=== PATIENT | female | born 1975 | race Caucasian/White ===

== ENCOUNTER 2022-07-24 19:42 | Emergency (ER) | payer SELFPAY ==
[~2022-07-24] VITALS: Ht 160 cm; Wt 110.0 kg
[~2022-07-24 19:42] MED LIST: AZIT-21 PO; PRCD5U PO
--- NOTE | 2022-07-24 20:06 | ED EENT ---
History of Present Illness General Chief Complaint: Ear Problems Stated Complaint: RIGHT EAR/JAW PAIN Nursing Triage Note: PT AMBULATES TO ROOM WITHOUT ASSISTANCE OF ER STAFF; PT REPORTS APPROX 1 YEAR AGO THAT SHE WAS DIAGNOSED WITH CELLULITIS ON R EARLOBE; PT ADVISES THAT STARTING MONDAY SHE BEGAN TO C/O SOME PAIN AND ITCHING IN R EAR; PT HAS NOT SEEN PCP OR URGENT CARE FOR COMPLAINT Source: patient Exam Limitations: no limitations (MADHU MXA APRN) History of Present Illness Date Seen by Provider: Jul 24, 2022 Time Seen by Provider: 20:06 Initial Comments 46 y/o female presents tonight with c/o right ear pain, itching, drainage that started this morning and has gradually worsened throughout today. Denies hearing loss. Pt has taken OTC tylenol with no relief. She reports h/o ce llulitis of ear lobe approximately one year ago. Denies fever, chills, headache, body aches. Timing/Duration: this morning Severity: mild Location: ear (R) Prearrival Treatment: over the counter meds Associated Symptoms: No change in hearing; ear drainage; No facial pain/s welling, No fever, No malaise, No nasal congestion/drainage, No sinus infection, No sore throat, No tooth pain (MADHU MAX APRN) Allergies and Home Medications Allergies Coded Allergies: No Known Drug Allergies (Unverified Allergy, Mild, 01/16/09) Penicillins (Verified Allergy, Unknown, 05/08/07) Patient Home Medication List Home Medication List Reviewed: Yes (MADHU MAX APRN) Azithromycin (Zithromax Tab) 250 Mg Tab, 2 TAB PO TODAY Prescribed by: JASMIN AVILES on 01/16/091549 Ciprofloxacin HCl/Dexameth (Ciproflox-Dexameth Otic Susp) 0.3 %-0.1 % Drops.susp, 7.5 ML OT BID Prescribed by: Madhu Max on 07/24/222032 Last Action: New Order Promethazine/Codeine (Phenergan W/Codeine Syrup) 5 Ml Syrp, 0 PO Q4H Prescribed by: JASMIN AVILES on 01/16/091549 Review of Systems Review of Systems Constitutional: No chills, No fever, No malaise, No weakness Eyes: No Symptoms Reported Ears: Pain, Purulent Discharge Nose: no symptoms reported Mouth: no symptoms reported Throat: no symptoms reported Respiratory: no symptoms reported Cardiovascular: no symptoms reported Musculoskeletal: no symptoms reported Skin: no symptoms reported Neurological: No Symptoms Reported Hematologic/Lymphatic: No Symptoms Reported Immunological/Allergic: no symptoms reported (MADHU MAX APRN) Past Ytravuh-Ycwxio-Snkbgr Hx Patient Social History Tobacco Use?: No Substance use?: No Alcohol Use?: No Pt feels they are or have been: Yes (MADHU MAX APRN) Immunizations Up To Date Influenza Vaccine Up-to-Date: No; Not Current First/Initial COVID19 Vaccinat: 2020 Second COVID19 Vaccination Christofer: 2020 COVID19 Vaccine Metal Bumper: RUTH (MADHU MAX APRN) Seasonal Allergies Seasonal Allergies: No (MADHU MAX APRN) Past Medical History Surgeries: No Reproductive Disorders: No (MADHU MAX APRN) Physical Exam Vital Signs Vital Signs - First Documented 07/24/22 19:56 Temp 36.9 Pulse 90 Resp 14 B/P (MAP) 174/99 (124) Pulse Ox 97 O2 Delivery Room Air (RAÚL FARFAN MD) Height, Weight, BMI Height: '" Weight: lbs. oz. kg; 42.00 BMI Method: General Appearance: WD/WN, no apparent distress Ears: left ear discharge, left ear erythema, left ear tenderness Nose: normal inspection Mouth/Throat: normal mouth inspection Neck: non-tender, full range of motion, supple, normal inspection; No lymphad enopathy (R), No lymphadenopathy (L) Cardiovascular: normal peripheral pulses, regular rate, rhythm Respiratory: chest non-tender, lungs clear Neurologic/Psychiatric: hand sander II-XII nml as tested, no motor/sensory deficits Skin: normal color, warm/dry (MADHU MAX APRN) Progress/Results/Core Measures Results/Orders Medications Given in ED Current Medications Medications Dose Ordered Sig/Miles Route Start Time Stop Time Status Last Admin Dose Admin Ceftriaxone Sodium 1,000 mg ONCE ONCE IM 07/24/22 20:15 07/24/22 20:18 DC 07/24/22 20:36 1,000 MG Ketorolac Tromethamine 60 mg ONCE ONCE IM 07/24/22 20:30 07/24/22 20:42 DC 07/24/22 20:36 60 MG Lidocaine HCl 2.1 ml ONCE ONCE INJ 07/24/22 20:15 07/24/22 20:18 DC 07/24/22 20:35 2.1 ML (RAÚL FARFAN MD) Vital Signs/I&O 07/24/22 07/24/22 19:56 20:40 Temp 36.9 36.9 Pulse 90 90 Resp 14 14 B/P (MAP) 174/99 (124) 174/99 Pulse Ox 97 97 O2 Delivery Room Air Room Air (RAÚL FARFAN MD) Blood Pressure Mean: 124 Departure Impression Primary Impression: Otitis externa Disposition: HOME, SELF-CARE Condition: Stable Departure-Patient Inst. Decision time for Depature: 20:20 (MADHU MAX APRN) Referrals: [facility] (PCP/Family) Primary Care Physician Patient Instructions: Outer Ear Infection (DC) Add. Discharge Instructions: Tylenol 500mg every 4 hours as needed. Ibuprofen 600mg every 6 hours as needed. Put 4 drops in right ear every 6 hours for 7 days. Follow up with new/worsening concerns All discharge instructions reviewed with patient and/or family. Voiced understanding. Scripts Ciprofloxacin HCl/Dexameth (Ciproflox-Dexameth Otic Susp) 0.3 %-0.1 % Drops.susp 7.5 ML OT BID for 7 Days, #4 DROPS Prov: MADHU MAX APRN 07/24/22 ATTENDING PHYSICIAN NOTE: I was physically present as attending physician in the emergency department during the care of this patient, but I was not directly involved in the decision making or delivery of care for this patient. (RAÚL FARFAN MD) MADHU MAX APRN Jul 24, 2022 20:06 RAÚL FARFAN MD Jul 25, 2022 07:10
[2022-07-24] MEDS ORDERED: NEOMY/POLYM/HC (CORTISPORIN) 10 ML BTL OT STA (20:13)
[2022-07-24] MEDS ORDERED: LIDOCAINE 1% INJ 20 ML VIAL INJ ONE (20:15)
[2022-07-24] MEDS ORDERED: cefTRIAXone 1,000 MG VIAL IM ONE (20:15)
[2022-07-24] MEDS ORDERED: KETOROLAC 60 MG/2 ML VIAL IM ONE (20:30)
[2022-07-24] MEDS ORDERED: CIPR7.5D6 OT (20:33)
[2022-07-24] MEDS ORDERED: KETOROLAC 60 MG/2 ML VIAL ONE (20:33)
[2022-07-24 20:40] VITALS: BP 174/99
== END 2022-07-24 20:41 | disposition home or self-care (01) ==
LOC: EDUNIT# 19:42 → ER 19:46
DX: H60.92 Unspecified otitis externa, left ear (principal); Z86.69 Personal history of other diseases of the nervous system and sense organs; Z88.0 Allergy status to penicillin; Z28.310 Unvaccinated for COVID-19

== ENCOUNTER 2022-09-21 07:39 | Emergency (ER) | payer SELFPAY ==
[~2022-09-21] VITALS: Ht 160 cm; Wt 113.0 kg
[~2022-09-21 07:39] MED LIST changes: +CIPR7.5D6 OT
--- NOTE | 2022-09-21 08:09 | ED GI ---
General Chief Complaint: Abdominal/GI Problems Stated Complaint: KIDNEY STONE Nursing Triage Note: pt ambulates to room 07 w c/o "stabbing" right lower back pain and abdominal pain. Patient states the pain started Monday ([id number]). Source of Information: Patient Exam Limitations: No Limitations History of Present Illness Date Seen by Provider: Sep 21, 2022 Time Seen by Provider: 07:55 Initial Comments 46-year-old female presents the emergency department for stabbing pain in her right flank region with radiation around her right anterior abdomen. Symptoms started on Monday and have been constant, progressive since that time. She gets slight relief after urination but continues to have pain. No hematuria or dysuria. No vaginal symptoms. She does not have menstrual cycles, had a hysterectomy at age 31. Denies any other intra-abdominal surgeries. She denies any fevers or chills. No changes in bowels or urination. She has never had s imilar pains in the past. No known trauma. Allergies and Home Medications Allergies Coded Allergies: Penicillins (Verified Allergy, Unknown, 05/08/07) No Known Drug Allergies (Unverified , 01/16/09) Patient Home Medication List Home Medication List Reviewed: Yes Azithromycin (Zithromax Tab) 250 Mg Tab, 2 TAB PO TODAY Prescribed by: JASMIN AVILES on 01/16/091549 Ciprofloxacin HCl/Dexameth (Ciproflox-Dexameth Otic Susp) 0.3 %-0.1 % Drops.susp, 7.5 ML OT BID Prescribed by: Brii Cornejo on 07/24/222032 Promethazine/Codeine (Phenergan W/Codeine Syrup) 5 Ml Syrp, 0 PO Q4H Prescribed by: JASMIN AVILES on 01/16/091549 Review of Systems Review of Systems Constitutional: no symptoms reported EENTM: No Symptoms Reported Respiratory: No Symptoms Reported Cardiovascular: No Symptoms Reported Gastrointestinal: Nausea, Other (Right flank, right abdomen pain) Genitourinary: No Symptoms Reported Musculoskeletal: no symptoms reported Skin: no symptoms reported Psychiatric/Neurological: No Symptoms Reported Endocrine: No Symptoms Reported Hematologic/Lymphatic: No Symptoms Reported Past Frclozn-Cmykzn-Mxezrc Hx Patient Social History Tobacco Use?: No Substance use?: No Alcohol Use?: No Immunizations Up To Date First/Initial COVID19 Vaccinat: 2020 Second COVID19 Vaccination Christofer: 2020 Seasonal Allergies Seasonal Allergies: No Past Medical History Surgeries: No Reproductive Disorders: No Family Medical History Reviewed Nursing Family Hx No Pertinent Family Hx Physical Exam Vital Signs Vital Signs - First Documented 09/21/22 07:53 Temp 36.1 Pulse 85 Resp 20 B/P (MAP) 172/116 (134) Pulse Ox 96 O2 Delivery Room Air Capillary Refill : Less Than 3 Seconds Height/Weight/BMI Height: '" Weight: lbs. oz. kg; 44.00 BMI Method: General Appearance: WD/WN, no apparent distress HEENT: normal ENT inspection, pharynx normal Neck: non-tender, full range of motion, supple, normal inspection Respiratory: chest non-tender, lungs clear, normal breath sounds, no respiratory distress, no accessory muscle use Cardiovascular: regular rate, rhythm, no edema, no gallop, no JVD, no murmur Gastrointestinal: normal bowel sounds, non tender, soft, no organomegaly Extremities: normal range of motion, non-tender, normal inspection, no pedal edema, no calf tenderness, normal capillary refill Back: normal inspection, no vertebral tenderness, CVA tenderness (R) Skin: normal color, warm/dry Lymphatic: no adenopathy Progress/Results/Core Measures Results/Orders Lab Results Laboratory Tests Test 09/21/22 08:17 09/21/22 09:27 Range/Units White Blood Count 7.0 4.3-11.0 10^3/uL Red Blood Count 5.20 H 3.80-5.11 10^6/uL Hemoglobin 14.3 11.5-16.0 g/dL Hematocrit 44 35-52 % Mean Corpuscular Volume 84 80-99 fL Mean Corpuscular Hemoglobin 28 25-34 pg Mean Corpuscular Hemoglobin Concent 33 32-36 g/dL Red Cell Distribution Width 14.3 10.0-14.5 % Platelet Count 347 130-400 10^3/uL Mean Platelet Volume 9.7 9.0-12.2 fL Immature Granulocyte % (Auto) 0 % Neutrophils (%) (Auto) 59 42-75 % Lymphocytes (%) (Auto) 31 12-44 % Monocytes (%) (Auto) 6 0-12 % Eosinophils (%) (Auto) 3 0-10 % Basophils (%) (Auto) 1 0-10 % Neutrophils # (Auto) 4.2 1.8-7.8 10^3/uL Lymphocytes # (Auto) 2.2 1.0-4.0 10^3/uL Monocytes # (Auto) 0.4 0.0-1.0 10^3/uL Eosinophils # (Auto) 0.2 0.0-0.3 10^3/uL Basophils # (Auto) 0.0 0.0-0.1 10^3/uL Immature Granulocyte # (Auto) 0.0 0.0-0.1 10^3/uL Sodium Level 137 135-145 MMOL/L Potassium Level 4.0 3.6-5.0 MMOL/L Chloride Level 104 98-107 MMOL/L Carbon Dioxide Level 25 21-32 MMOL/L Anion Gap 8 5-14 MMOL/L Blood Urea Nitrogen 8 7-18 MG/DL Creatinine 0.73 0.60-1.30 MG/DL Estimat Glomerular Filtration Rate 104 BUN/Creatinine Ratio 11 Glucose Level 105 70-105 MG/DL Calcium Level 9.5 8.5-10.1 MG/DL Corrected Calcium 9.2 8.5-10.1 MG/DL Total Bilirubin 0.4 0.1-1.0 MG/DL Aspartate Amino Transf (AST/SGOT) 16 5-34 U/L Alanine Aminotransferase (ALT/SGPT) 21 0-55 U/L Alkaline Phosphatase 71 40-136 U/L Total Protein 7.9 6.4-8.2 GM/DL Albumin 4.4 3.2-4.5 GM/DL Urine Color YELLOW Urine Clarity CLEAR Urine pH 6.0 5-9 Urine Specific Shubert 1.025 H 1.016-1.022 Urine Protein NEGATIVE NEGATIVE Urine Glucose (UA) NEGATIVE NEGATIVE Urine Ketones NEGATIVE NEGATIVE Urine Nitrite NEGATIVE NEGATIVE Urine Bilirubin NEGATIVE NEGATIVE Urine Urobilinogen 0.2 < = 1.0 MG/DL Urine Leukocyte Esterase NEGATIVE NEGATIVE Urine RBC (Auto) NEGATIVE NEGATIVE Urine RBC NONE /HPF Urine WBC NONE /HPF Urine Squamous Epithelial Cells 0-2 /HPF Urine Crystals NONE /LPF Urine Bacteria NEGATIVE /HPF Urine Casts NONE /LPF Urine Mucus NEGATIVE /LPF Urine Culture Indicated NO My Orders Orders - SRIRAM WEIR DO Ct Abd/Pelvis Wo(Kidney Stone) (09/21/22 08:04) Cbc With Automated Diff (09/21/22 08:04) Comprehensive Metabolic Panel (09/21/22 08:04) Ua Culture If Indicated (09/21/22 08:04) Ns Iv 1000 Ml (Sodium Chloride 0.9%) (09/21/22 08:15) Fentanyl Inj (Sublimaze Injection) (09/21/22 08:15) Ondansetron Injection (Zofran Injectio (09/21/22 08:15) Diphenhydramine Injection (Benadryl Inje (09/21/22 09:45) Ketorolac Injection (Toradol Injection) (09/21/22 09:45) Medications Given in ED Current Medications Medications Dose Ordered Sig/Miles Route Start Time Stop Time Status Last Admin Dose Admin Diphenhydramine HCl 50 mg ONCE ONCE IM 09/21/22 09:45 09/21/22 09:46 DC 09/21/22 09:42 50 MG Fentanyl Citrate 50 mcg ONCE ONCE IVP 09/21/22 08:15 09/21/22 08:16 DC 09/21/22 08:20 50 MCG Ketorolac Tromethamine 15 mg ONCE ONCE IVP 09/21/22 09:45 09/21/22 09:46 DC 09/21/22 09:40 15 MG Ondansetron HCl 8 mg ONCE ONCE IVP 09/21/22 08:15 09/21/22 08:16 DC 09/21/22 08:19 8 MG Vital Signs/I&O 09/21/22 07:53 Temp 36.1 Pulse 85 Resp 20 B/P (MAP) 172/116 (134) Pulse Ox 96 O2 Delivery Room Air Blood Pressure Mean: 134 Departure Communication (Admissions) CMP to check electrolytes, liver function, possibility of possible gallbladder pathology. Lipase to rule out pancreatitis. UA to check for hematuria, i nfection given chance of kidney stone or pyelonephritis. CT abdomen without contrast to evaluate for ureterolithiasis and screen for other acute pathology. No test ordered because the patient has had a hysterectomy. She denies any vaginal symptoms so we will forego pelvic exam at this time. Patient's. After provided medications. Benadryl seemed helpful for her nausea and then did go.. She is also received fentanyl IV which helped some and Toradol which helped even more. Her CT scan shows no evidence for ureteral stone she does have a stone retained in her kidney. This does not appear to be obstructive at this time. She has some trace blood in her urine but no urinary tract infection no evidence for pyelonephritis. This may be a recently passed stone versus musculoskeletal type pain. There is no other intra-abdominal, pelvic pathology seen on her CT scan. Her vital signs are stable and her exam is reassuring. She is discharged home with supportive care, pain medication and nausea medicine and close follow-up. She states understanding she is comfortable and agreeable with current plan of care. Impression Primary Impression: Right flank pain Disposition: 01 HOME, SELF-CARE Condition: Stable Departure-Patient Inst. Referrals: [facility] (PCP/Family) Primary Care Physician Patient Instructions: Flank Pain Add. Discharge Instructions: Take Toradol as needed for pain. Use the Zofran by dissolving it under your tongue as needed for nausea. You may use Benadryl orally for this as well. Increase your fluids and rest as needed. Return to the emergency department for any severe concerns. Follow-up with your primary doctor for any nonemergent needs All discharge instructions reviewed with patient and/or family. Voiced understanding. Scripts Ondansetron (Ondansetron Odt) 8 Mg Tab.rapdis 8 MG SL Q6H PRN for NAUSEA/VOMITING for 3 Days, #12 TAB Prov: SRIRAM WEIR DO 09/21/22 Ketorolac Tromethamine (Ketorolac Tromethamine) 10 Mg Tablet 10 MG PO TID for Pain for 3 Days, #9 TAB Prov: SRIRAM WEIR DO 09/21/22 SRIRAM WEIR DO Sep 21, 2022 08:09
[2022-09-21] MEDS ORDERED: ONDANSETRON 4 MG/2 ML (SDV) Z0FRAN IVP ONE (08:15)
[2022-09-21] MEDS ORDERED: NS IV 1000 ML 1,000 ML IV SCH (08:15)
[2022-09-21] MEDS ORDERED: fentaNYL INJ 100 MCG/2 ML AMP IVP ONE (08:15)
[2022-09-21 08:23] LABS: BASOPHILS % (AUTO) 1 % (0-10); EOSINOPHILS # (AUTO) 0.2 10^3/uL (0.0-0.3); EOSINOPHILS % (AUTO) 3 % (0-10); HEMATOCRIT 44 % (35-52); HEMOGLOBIN 14.3 g/dL (11.5-16.0); LYMPHOCYTES # (AUTO) 2.2 10^3/uL (1.0-4.0); LYMPHOCYTES % (AUTO) 31 % (12-44); MEAN CORPUSCULAR HEMOGLOBIN 28 pg (25-34); MEAN CORPUSCULAR HGB CONC 33 g/dL (32-36); MEAN CORPUSCULAR VOLUME 84 fL (80-99); MEAN PLATELET VOLUME 9.7 fL (9.0-12.2); MONOCYTES # (AUTO) 0.4 10^3/uL (0.0-1.0); MONOCYTES % (AUTO) 6 % (0-12); NEUTROPHILS # (AUTO) 4.2 10^3/uL (1.8-7.8); NEUTROPHILS % (AUTO) 59 % (42-75); PLATELET COUNT 347 10^3/uL (130-400)
[2022-09-21 08:45] LABS: ALBUMIN 4.4 GM/DL (3.2-4.5)
[2022-09-21 08:46] LABS: CALCIUM 9.5 MG/DL (8.5-10.1)
[2022-09-21 08:47] LABS: TOTAL PROTEIN 7.9 GM/DL (6.4-8.2)
[2022-09-21 08:49] LABS: BILIRUBIN,TOTAL 0.4 MG/DL (0.1-1.0)
[2022-09-21 08:51] LABS: CREATININE SERUM 0.73 MG/DL (0.60-1.30)
--- NOTE | 2022-09-21 09:14 | Diagnostic Imaging Report ---
PROCEDURE: CT urinary tract, rule out kidney stone. TECHNIQUE: Multiple contiguous axial images were obtained through the abdomen and pelvis without the use of intravenous contrast. Auto Exposure Controls were utilized during the CT exam to meet ALARA standards for radiation dose reduction. INDICATION: Right-sided flank pain. COMPARISON: None. FINDINGS: The heart is unremarkable. Tiny nodules are seen in the lung bases measuring up to 0.4 cm. There is hepatic steatosis with focal fatty sparing along the gallbladder fossa. The gallbladder is unremarkable. A nonobstructing calculus is seen in the inferior pole of the left kidney measuring 0.3 cm. No obstructing calculi or hydronephrosis. The urinary bladder is nondistended. No bladder calculi are seen. The spleen, pancreas, and adrenal glands have a normal appearance. There is no pathologically enlarged mesenteric or retroperitoneal adenopathy. The bowel loops are nondilated. The appendix is visualized in the right lower quadrant and has a normal appearance. There is no free fluid or free air. No acute osseous abnormalities. There is no free air, loculated collection, or adenopathy in the pelvis. IMPRESSION: 1. Nonobstructing calculus in the inferior pole of the left kidney measuring 0.3 cm. No obstructing calculi or hydronephrosis. 2. Hepatic steatosis. 3. Scattered subcentimeter nodules in the lung bases measuring up to 0.4 cm. Findings likely represent inflammatory/infectious process. However, if the patient is high risk for developing lung malignancy consider followup in one month with chest CT. Dictated by: Dictated on workstation # [id number]
[2022-09-21 09:41] LABS: BILIRUBIN,URINE NEGATIVE (NEGATIVE); CLARITY,URINE CLEAR; COLOR,URINE YELLOW; GLUCOSE, URINE (UA) NEGATIVE (NEGATIVE); KETONES,URINE NEGATIVE (NEGATIVE); LEUKOCYTE ESTERASE ,URINE NEGATIVE (NEGATIVE); NITRITE,URINE NEGATIVE (NEGATIVE); PROTEIN,URINE NEGATIVE (NEGATIVE)
[2022-09-21] MEDS ORDERED: KETOROLAC 30 MG/ML VIAL IVP ONE (09:45)
[2022-09-21] MEDS ORDERED: diphenhydrAMINE 50 MG/ML INJ (BENADRYL) IM ONE (09:45)
[2022-09-21 09:56] LABS: BACTERIA,URINE NEGATIVE /HPF; SQUAMOUS EPITHELIAL CELL,UR 0-2 /HPF
[2022-09-21] MEDS ORDERED: ONDA8TAB13 SL (10:26)
[2022-09-21] MEDS ORDERED: KETO10TA PO (10:26)
[2022-09-21 10:39] VITALS: BP 144/93
== END 2022-09-21 10:39 | disposition home or self-care (01) ==
LOC: EDUNIT# 07:39 → ER 07:41
DX: R10.9 Unspecified abdominal pain (principal); Z28.310 Unvaccinated for COVID-19
CPT/HCPCS: 36415; 74176; 80053; 81000; 85025

== ENCOUNTER 2023-05-09 00:58 | Emergency (ER) | payer SELFPAY ==
[~2023-05-09] VITALS: Ht 160 cm; Wt 113.0 kg
[~2023-05-09 00:58] MED LIST changes: +KETO10TA PO; +ONDA8TAB13 SL
[2023-05-09] MEDS ORDERED: KETOROLAC INJ 30 MG/ML VIAL IVP STA (01:28)
[2023-05-09] MEDS ORDERED: LACTATED RINGERS 1,000 ML 1,000 ML IV ONE (01:30)
[2023-05-09] MEDS ORDERED: ONDANSETRON INJECTION 4 MG/2 ML (SDV) IVP ONE (01:30)
[2023-05-09 01:40] LABS: BASOPHILS # (AUTO) 0.1 10^3/uL (0.0-0.1); BASOPHILS % (AUTO) 1 % (0-10); EOSINOPHILS # (AUTO) 0.3 10^3/uL (0.0-0.3); EOSINOPHILS % (AUTO) 3 % (0-10); HEMATOCRIT 41 % (35-52); LYMPHOCYTES # (AUTO) 4.1 10^3/uL (1.0-4.0); LYMPHOCYTES % (AUTO) 44 % (12-44); MEAN CORPUSCULAR HEMOGLOBIN 28 pg (25-34); MEAN CORPUSCULAR HGB CONC 32 g/dL (32-36); MEAN CORPUSCULAR VOLUME 88 fL (80-99); MEAN PLATELET VOLUME 10.1 fL (9.0-12.2); MONOCYTES # (AUTO) 0.5 10^3/uL (0.0-1.0); MONOCYTES % (AUTO) 6 % (0-12); NEUTROPHILS # (AUTO) 4.4 10^3/uL (1.8-7.8); NEUTROPHILS % (AUTO) 47 % (42-75); PLATELET COUNT 332 10^3/uL (130-400); WHITE BLOOD COUNT 9.5 10^3/uL (4.3-11.0)
[2023-05-09 01:42] LABS: BILIRUBIN,URINE NEGATIVE (NEGATIVE); CLARITY,URINE CLEAR; COLOR,URINE YELLOW; GLUCOSE, URINE (UA) NEGATIVE (NEGATIVE); KETONES,URINE NEGATIVE (NEGATIVE); LEUKOCYTE ESTERASE ,URINE NEGATIVE (NEGATIVE); NITRITE,URINE NEGATIVE (NEGATIVE); PH,URINE 5.5 (5-9); PROTEIN,URINE NEGATIVE (NEGATIVE); RBC,URINE 0-2 /HPF; SQUAMOUS EPITHELIAL CELL,UR 0-2 /HPF
[2023-05-09 01:43] LABS: AMORPHOUS SEDIMENT,UR MOD AMOR URATES /LPF
--- NOTE | 2023-05-09 01:45 | ED General ---
General Stated Complaint: COVID+,LEFT SIDE PX Source of Information: Patient History of Present Illness Date Seen by Provider: May 09, 2023 Time Seen by Provider: 01:08 Initial Comments PT ARRIVES VIA POV FROM HOME PT BEGAN GETTING SICK LAST Monday05/03/23 WITH COUGH, CONGESTION, FEVER SHE TESTED POSITIVE FOR COVID YESTERDAY AT A CLINIC NO CHEST PAIN OR SHORTNESS OF BREATH OR PAIN WITH BREATHING. NO FEVER TODAY SHE BEGAN HAVING SUDDEN ONSET OF LEFT FLANK PAIN 30 MINUTES PRIOR TO ARRIVAL + NAUSEA, NO VOMITING WITH THE PAIN NO URINARY SYMPTOMS SHE HAS NOT TAKEN ANYTHING FOR PAIN SHE DOES HAVE A HISTORY OF A KIDNEY STONE IN THE PAST. PASSED IT ON HER OWN. DOES NOT SEE A UROLOGIST LMP--HYSTERECTOMY AT AGE 31 [facility] Allergies and Home Medications Allergies Coded Allergies: Penicillins (Verified Allergy, Unknown, 05/08/07) No Known Drug Allergies (Unverified , 01/16/09) Patient Home Medication List Azithromycin (Zithromax Tab) 250 Mg Tab, 2 TAB PO TODAY Prescribed by: JASMIN AVILES on 01/16/09 1550 Ciprofloxacin HCl/Dexameth (Ciproflox-Dexameth Otic Susp) 0.3 %-0.1 % Drops.susp, 7.5 ML OT BID Prescribed by: Brii Cornejo on 07/24/222032 Ketorolac Tromethamine (Ketorolac Tromethamine) 10 Mg Tablet, 10 MG PO TID Prescribed by: SRIRAM WEIR MD on 09/21/22 1026 Ondansetron (Ondansetron Odt) 8 Mg Tab.rapdis, 8 MG SL Q6H PRN for NAUSEA/VOMITING Prescribed by: SRIRAM WEIR MD on 09/21/22 1026 Promethazine/Codeine (Phenergan W/Codeine Syrup) 5 Ml Syrp, 0 PO Q4H Prescribed by: JASMIN AVILES on 01/16/09 1550 Review of Systems Review of Systems Constitutional: see HPI EENTM: see HPI Respiratory: see HPI Cardiovascular: no symptoms reported Gastrointestinal: see HPI Genitourinary: see HPI : No Musculoskeletal: see HPI Skin: no symptoms reported Psychiatric/Neurological: No Symptoms Reported Hematologic/Lymphatic: No Symptoms Reported Immunological/Allergic: no symptoms reported Past Oufgrwg-Uulvjm-Ihdcbo Hx Immunizations Up To Date First/Initial COVID19 Vaccinat: 2020 Second COVID19 Vaccination Christofer: 2020 Seasonal Allergies Seasonal Allergies: No Past Medical History Surgeries: Yes Hysterectomy, Oophorectomy Respiratory: No Cardiac: Yes Hypertension Neurological: No 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 oz. 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 Norm as Tested Skin: Normal Color, Warm/Dry; No Rash Progress/Results/Core Measures Suspected Sepsis SIRS Temperature: Pulse: Respiratory Rate: Laboratory Tests 05/09/23 01:29: White Blood Count 9.5 Blood Pressure / Mean: Laboratory Tests 05/09/23 01:29: Creatinine 0.84, Platelet Count 332, Total Bilirubin 0.2 Results/Orders Lab Results Laboratory Tests Test 05/09/23 01:28 05/09/23 01:29 Range/Units Urine Color YELLOW Urine Clarity CLEAR Urine pH 5.5 5-9 Urine Specific [place] 1.025 H 1.016-1.022 Urine Protein NEGATIVE NEGATIVE Urine Glucose (UA) NEGATIVE NEGATIVE Urine Ketones NEGATIVE NEGATIVE Urine Nitrite NEGATIVE NEGATIVE Urine Bilirubin NEGATIVE NEGATIVE Urine Urobilinogen 0.2 < = 1.0 MG/DL Urine Leukocyte Esterase NEGATIVE NEGATIVE Urine RBC (Auto) 3+ H NEGATIVE Urine RBC 0-2 /HPF Urine WBC NONE /HPF Urine Squamous Epithelial Cells 0-2 /HPF Urine Crystals PRESENT H /LPF Urine Amorphous Sediment MOD IRAM URATES H /LPF Urine Bacteria NEGATIVE /HPF Urine Casts NONE /LPF Urine Mucus SMALL H /LPF Urine Culture Indicated NO White Blood Count 9.5 4.3-11.0 10^3/uL Red Blood Count 4.62 3.80-5.11 10^6/uL Hemoglobin 13.0 11.5-16.0 g/dL Hematocrit 41 35-52 % Mean Corpuscular Volume 88 80-99 fL Mean Corpuscular Hemoglobin 28 25-34 pg Mean Corpuscular Hemoglobin Concent 32 32-36 g/dL Red Cell Distribution Width 14.3 10.0-14.5 % Platelet Count 332 130-400 10^3/uL Mean Platelet Volume 10.1 9.0-12.2 fL Immature Granulocyte % (Auto) 0 % Neutrophils (%) (Auto) 47 42-75 % Lymphocytes (%) (Auto) 44 12-44 % Monocytes (%) (Auto) 6 0-12 % Eosinophils (%) (Auto) 3 0-10 % Basophils (%) (Auto) 1 0-10 % Neutrophils # (Auto) 4.4 1.8-7.8 10^3/uL Lymphocytes # (Auto) 4.1 H 1.0-4.0 10^3/uL Monocytes # (Auto) 0.5 0.0-1.0 10^3/uL Eosinophils # (Auto) 0.3 0.0-0.3 10^3/uL Basophils # (Auto) 0.1 0.0-0.1 10^3/uL Immature Granulocyte # (Auto) 0.0 0.0-0.1 10^3/uL Sodium Level 142 135-145 MMOL/L Potassium Level 3.6 3.6-5.0 MMOL/L Chloride Level 106 98-107 MMOL/L Carbon Dioxide Level 26 21-32 MMOL/L Anion Gap 10 5-14 MMOL/L Blood Urea Nitrogen 13 7-18 MG/DL Creatinine 0.84 0.60-1.30 MG/DL Estimat Glomerular Filtration Rate 87 BUN/Creatinine Ratio 15 Glucose Level 126 H 70-105 MG/DL Calcium Level 9.2 8.5-10.1 MG/DL Corrected Calcium 9.1 8.5-10.1 MG/DL Magnesium Level 2.0 1.6-2.4 MG/DL Total Bilirubin 0.2 0.1-1.0 MG/DL Aspartate Amino Transf (AST/SGOT) 17 5-34 U/L Alanine Aminotransferase (ALT/SGPT) 23 0-55 U/L Alkaline Phosphatase 61 40-136 U/L Total Protein 7.0 6.4-8.2 GM/DL Albumin 4.1 3.2-4.5 GM/DL Amylase Level 50 25-125 U/L Lipase 16 8-78 U/L My Orders Orders - MARC BOO DO Chest 1 View, Ap/Pa Only (05/09/23 01:07) Ed Iv/Invasive Line Start (05/09/23 01:21) Monitor-Rhythm Ecg Trace Only (05/09/23 01:21) Ct Abd/Pelvis Wo(Kidney Stone) (05/09/23 01:21) Amylase (05/09/23 01:21) Cbc With Automated Diff (05/09/23 01:21) Comprehensive Metabolic Panel (05/09/23 01:21) Lipase (05/09/23 01:21) Magnesium (05/09/23 01:21) Ua Culture If Indicated (05/09/23 01:21) Ed Iv/Invasive Line Start (05/09/23 01:21) Lactated Ringers 1,000 Ml (Lactated Ring (05/09/23 01:30) Ondansetron Injection (Ondansetron Inj (05/09/23 01:30) Ketorolac Injection (Ketorolac Injection (05/09/23 01:28) Medications Given in ED Current Medications Medications Dose Ordered Sig/Miles Route Start Time Stop Time Status Last Admin Dose Admin Lactated Ringer's 1,000 ml @ 0 mls/hr Q0M ONCE IV 05/09/23 01:30 05/09/23 01:31 DC 05/09/23 01:35 0 MLS/HR Ondansetron HCl 4 mg ONCE ONCE IVP 05/09/23 01:30 05/09/23 01:31 DC 05/09/23 01:34 4 MG Vital Signs/I&O 05/09/23 01:16 Temp 36.5 Pulse 83 Resp 20 B/P (MAP) 123/101 (108) Pulse Ox 95 O2 Delivery Room Air Capillary Refill : Progress Note : Progress Note PLACED IN ISOLATION ROOM FULL PPE WORN VITALS ON ARRIVAL: TEMP , HR 83, RR 20, BP 123/101, O2 SAT 95% ON ROOM AIR GIVEN: -IV FLUIDS -TORADOL -ZOFRAN LABS: -CBC NORMAL -CMP NORMAL -AMYLASE/LIPASE NORMAL -UA WITH 3+ BLOOD CXR--UNREMARKABLE, POOR INSPIRATION--PENDING RADIOLOGIST REVIEW CT ABDOMEN/PELVIS NO COUGH NO DYSPNEA NO HYPOXIA NO FEVER PAIN AND NAUSEA IMPROVED WITH MEDICATIONS DISCUSSED TEST RESULTS, ANTICIPATED COURSE, SYMPTOMATIC TREATMENT, NEED FOR FOLLOW UP AND RETURN PRECAUTIONS. Departure Impression Primary Impression: Calculus of distal left ureter Additional Impression: COVID-19 virus infection Disposition: HOME, SELF-CARE Condition: Improved Departure-Patient Inst. Decision time for Depature: 03:40 Referrals: [facility]/ (PCP/Family) Primary Care Physician Patient Instructions: Kidney Stones (DC), How to Strain Your Urine, COVID-19 (DC), Kidney Stone Diet Add. Discharge Instructions: HOME, REST LOTS OF CLEAR LIQUIDS FOLLOW UP WITH UROLOGIST OF CHOICE THIS WEEK FOR FURTHER CARE--THERE ARE UROLOGY SERVICES IN [place] AND AT [facility] IN [place]--CALL IN THE MORNING TO SCHEDULE AN APPOINTMENT RETURN TO ER IF SYMPTOMS WORSEN Scripts Hydrocodone Bit/Acetaminophen (HYDROcodone/APAP 7.5/325 TAB) 1 Ea Tablet 1 EA PO Q4-6 PRN for PAIN, #20 TAB Prov: MARC BOO DO 05/09/23 Ketorolac Tromethamine (Ketorolac Tromethamine) 10 Mg Tablet 10 MG PO Q6H for Pain, #15 TAB Prov: MARC BOO DO 05/09/23 Ondansetron (Ondansetron Odt) 8 Mg Tab.rapdis 8 MG PO Q6H, #12 TAB Prov: MARC BOO DO 05/09/23 Tamsulosin HCl (Flomax) 0.4 Mg Cap 0.4 MG PO DAILY, #10 CAP Prov: MARC BOO DO 05/09/23 Ciprofloxacin HCl (Ciprofloxacin HCl) 500 Mg Tablet 500 MG PO BID, #14 TAB Prov: MARC BOO DO 05/09/23 Work/School Note: Work Release Form Date Seen in the Emergency Department: May 09, 2023 Return to Work: May 12, 2023 MARC BOO DO May 09, 2023 01:45
[2023-05-09 01:50] LABS: BACTERIA,URINE NEGATIVE /HPF
[2023-05-09 01:52] LABS: ALBUMIN 4.1 GM/DL (3.2-4.5); POTASSIUM 3.6 MMOL/L (3.6-5.0)
[2023-05-09 01:53] LABS: CALCIUM 9.2 MG/DL (8.5-10.1)
[2023-05-09 01:56] LABS: BILIRUBIN,TOTAL 0.2 MG/DL (0.1-1.0)
[2023-05-09 01:58] LABS: CREATININE SERUM 0.84 MG/DL (0.60-1.30)
[2023-05-09] MEDS ORDERED: RX-ONDANSETRON 4 MG ODT (ZOFRAN) PPK #4 PO STA (03:42)
[2023-05-09] MEDS ORDERED: TAMSULOSIN 0.4 MG (FLOMAX) CAP PO SCH (03:45)
[2023-05-09] MEDS ORDERED: fentaNYL INJECTION 100 MCG/2 ML VIAL IVP ONE (03:45)
[2023-05-09] MEDS ORDERED: KETO10TA PO (03:47)
[2023-05-09] MEDS ORDERED: CIPR500T5 PO (03:47)
[2023-05-09] MEDS ORDERED: TMSL.4C PO (03:47)
[2023-05-09] MEDS ORDERED: ONDA8TAB13 PO (03:47)
[2023-05-09] MEDS ORDERED: HYDR-34 PO (03:47)
[2023-05-09 04:04] VITALS: BP 153/93
--- NOTE | 2023-05-09 07:36 | Diagnostic Imaging Report ---
INDICATION: Left-sided chest pain Covid positive. EXAMINATION: Single view chest 05/09/2023 FINDINGS: Heart and pulmonary vasculature normal. There are low lung volumes with minimal bibasilar atelectasis. No definite infiltrates. No effusions or pneumothorax. IMPRESSION: 1. No acute cardiopulmonary process but if symptoms persist, follow-up is recommended. Dictated by: Dictated on workstation # [id number]
--- NOTE | 2023-05-09 07:44 | Diagnostic Imaging Report ---
PROCEDURE: CT urinary tract, rule out kidney stone. TECHNIQUE: Multiple contiguous axial images were obtained through the abdomen and pelvis without the use of intravenous contrast. Auto Exposure Controls were utilized during the CT exam to meet ALARA standards for radiation dose reduction. INDICATION: Covid positive, left flank pain, history of kidney stones and hysterectomy. EXAMINATION: CT abdomen and pelvis without contrast 05/09/2023 COMPARISON: 09/21/2022 FINDINGS: Small subpleural nodules noted throughout the right lung base and to a lesser degree at the left lung base. These should be followed to assure stability. Linear scar or atelectasis also noted bilaterally. The nonopacified liver demonstrates hepatic steatosis. There is mild hepatomegaly. Gallbladder unremarkable. Spleen and pancreas normal. Adrenal glands unremarkable. There are punctate nonobstructive stones in left kidney with mild prominence of the left renal collecting system. In the distal left ureter proximal to the UVJ a 5 mm stone is noted. Other calcifications in the pelvis consistent with phleboliths. There are no ureteral stones on the right with no hydronephrosis. No nephrolithiasis on the right. Bowel loops unremarkable. No inflammatory change. No ascites or free air. Atherosclerotic disease is noted. IMPRESSION: 1. A 5 mm stone distal left ureter with secondary mild left hydroureteronephrosis. Other incidental findings as above. Pertinent findings agree with the preliminary report. 2. Nodules in the subpleural space of both lung bases; follow-up recommended to assure stability. Dictated by: Dictated on workstation # [id number]
== END 2023-05-09 04:08 | disposition home or self-care (01) ==
LOC: EDUNIT# 00:58 → ER 01:01
DX: U07.1 COVID-19 (principal); R11.0 Nausea; R05.9 Cough, unspecified; R09.81 Nasal congestion; R50.9 Fever, unspecified; N20.1 Calculus of ureter; E66.9 Obesity, unspecified; Z88.0 Allergy status to penicillin; Z68.41 Body mass index [BMI] 40.0-44.9, adult
CPT/HCPCS: 36415; 71045; 74176; 80053; 81000; 82150; 83690; 83735; 85025